=== PATIENT | male | born 1975 | race Caucasian/White ===

== ENCOUNTER 2017-02-22 21:01 | Inpatient (IN) | payer MEDICAID ==
[~2017-02-22] VITALS: Ht 177.8 cm; Wt 81.6 kg
[2017-02-22 21:04] VITALS: BP 125/90
--- NOTE | 2017-02-22 21:10 | NUR ---
PATIENT IS 41/M PRESENTS TO ED WITH ABD PAIN, VOMITING STARTED AT 1400 HOURS TODAY. PT STATES SURGERY HX OF ABD SURGERY X 25 YEARS AGO . DENIES N/D; SKIN IS PINK/WARM/DRY; AAOX4 WITH EVEN AND STEADY GAIT; LUNGS CLEAR BL; HR EVEN AND REGULAR; PT DENIES ANY FEVER, CP, SOB, OR COUGH AT THIS TIME; PATIENT STATES PAIN OF 9/10 AT THIS TIME; VSS; PATIENT POSITIONED FOR COMFORT; HOB ELEVATED; BEDRAILS UP X2; BED DOWN. ER MD MADE AWARE OF PT STATUS.
--- NOTE | 2017-02-22 21:20 | NUR ---
Patient being evaluated by physician at bedside.
[2017-02-22] MEDS ORDERED: KETOROLAC 30 MG/ML VIAL IVP ONE (21:30)
[2017-02-22] MEDS ORDERED: NACL 0.9% 1,000 ML IV ONE (21:30)
[2017-02-22] MEDS ORDERED: ONDANSETRON 4 MG/2 ML VIAL IVP ONE (21:30)
[2017-02-22 21:44] LABS: HEMATOCRIT 47.2 % (36-52); HEMOGLOBIN 15.5 g/dL (12.0-18.0); MEAN CORPUSCULAR HEMOGLOBIN 30 pg (27-31); MEAN CORPUSCULAR HGB CONC 33 g/dL (33-37); MEAN CORPUSCULAR VOLUME 92 fL (80-94); PLATELET COUNT (AUTO) 384 K/uL (140-450); RED BLOOD CELL COUNT(AUTO) 5.13 MIL/uL (4.20-6.10); RED CELL DISTRIBUTION WIDTH 12.9 % (11.6-13.7); WHITE BLOOD COUNT (AUTO) 16.3 K/uL (4.8-10.8)
--- NOTE | 2017-02-22 21:54 | NUR ---
PT TAKEN OFF UNIT TO CT
[2017-02-22 21:57] LABS: ANION GAP 14.1 (8-16); CALCIUM 9.6 mg/dL (8.5-10.1); CARBON DIOXIDE 29.6 mmol/L (21-32); CREATININE 1.4 mg/dL (0.7-1.3); POTASSIUM 3.7 mmol/L (3.5-5.1)
--- NOTE | 2017-02-22 22:00 | NUR ---
PT BACK ON THE UNIT FROM HAVING CT DONE.
[2017-02-22 22:02] LABS: ALBUMIN 4.6 g/dL (3.4-5.0); TOTAL BILIRUBIN 1.2 mg/dL (0.0-1.0); TOTAL PROTEIN, SERUM 8.6 g/dL (6.4-8.2)
[2017-02-22 22:16] LABS: BAND % (MANUAL) 1 % (0-8); EOSINOPHILS % (MANUAL) 5 % (0-4); LYMPHOCYTES % (MANUAL) 27 % (20-46); MONOCYTES % (MANUAL) 2 % (5-12); NEUTROPHILS % (MANUAL) 65 (43-65); PLATELET ESTIMATE ADEQUATE
[2017-02-22 22:21] LABS: APPEARANCE,URINE CLEAR (CLEAR); BILIRUBIN,URINE NEGATIVE (NEGATIVE); BLOOD, URINE TRACE-I (NEGATIVE); COLOR,URINE YELLOW (YELLOW); LEUKOCYTE ESTERASE ,URINE NEGATIVE (NEGATIVE); NITRITE, URINE NEGATIVE (NEGATIVE); PH,URINE 8.5 (5.0-9.0); PROTEIN,URINE TRACE (NEGATIVE); UGLUCOSE NEGATIVE (NEGATIVE); UROBILINOGEN,URINE 0.2 EU/dL (0.2 - 1)
[2017-02-22 22:34] LABS: BACTERIA,URINE None Seen /HPF (None Seen); MUCUS,URINE 3+ /LPF (None Seen); SQUAMOUS EPITHELIAL CELL,UR None Seen /LPF (0-3 (FEW)); URINE AMORPHOUS PHOSPHATES 3+ /HPF (None Seen); WBC,URINE 0-3 /HPF (0-5)
[2017-02-22] MEDS ORDERED: DOCUSATE SODIUM 100 MG GELCAP PO PRN (23:05)
[2017-02-22] MEDS ORDERED: ONDANSETRON 4 MG/2 ML VIAL IM/IVP PRN (23:05)
[2017-02-22] MEDS ORDERED: MORPHINE SULFATE 2 MG/ML SYR IVP PRN (23:05)
[2017-02-22] MEDS ORDERED: ACETAMINOPHEN 325 MG TAB PO PRN (23:05)
[2017-02-22] MEDS ORDERED: HYDROcodone/APAP 7.5/325 MG 1 TAB PO PRN (23:05)
[2017-02-22] MEDS ORDERED: KETOROLAC 30 MG/ML VIAL IVP PRN (23:10)
--- NOTE | 2017-02-22 23:23 | NUR ---
DR RAZO HERE ON UNIT TO SEE PATIENT
--- NOTE | 2017-02-22 23:31 | NUR ---
Patient will be admitted to care of DR MOSELEY. Admited to TELE. Will go to room 111B. Belongings list completed. Report to SHELDON LIMA.
[2017-02-22 23:39] LABS: PARTIAL THROMBOPLASTIN TIME 25.1 secs (22-35.6); PROTHROMBIN TIME 10.1 secs (10.8-13.4)
[2017-02-22 23:55] LABS: AMPHETAMINE, URINE NEG. ng/ml (NEG <=1000); BARBITURATE, URINE NEG. ng/ml (NEG <=200); BENZODIAZEPINE, URINE NEG. ng/mL (NEG <=200); CANNABINOID, URINE NEG. ng/mL (NEG <=50); COCAINE, URINE NEG. ng/mL (NEG <=300); OPIATE, URINE NEG. ng/mL (NEG <=2000); PHENCYCLIDINE SCREEN,URINE NEG. ng/mL (NEG <=25)
[2017-02-23] MEDS: NACL 0.9% 1,000 ML IV SCH ×3 (00:01→12:03)
[2017-02-23 00:04] LABS: CHOL/HDL RATIO 2.7 (1-4.5); FREE T4 (FREE THYROXINE) 0.98 ng/dL (0.76-1.46); MAGNESIUM 2.2 mg/dL (1.8-2.4); PHOSPHORUS 3.6 mg/dL (2.5-4.9); THYROID STIMULATING HORMONE 1.84 uIU/mL (0.34-3.74)
[2017-02-23 00:09] VITALS: BP 110/64
--- NOTE | 2017-02-23 00:10 | NUR ---
RECEIVE PT FROM ER VIA [facility] PT [place] [facility] AAOX4 AMBULATORY ON TELEMETRY, SR HL ON LEFT AC PATENT SKIN IS INTACT NOT PAIN AT THIS ;TIME PAIN MEDIC WAS GIVEN IN ER ,PT IS ORIENTED TO THE FLOOR CALL LIGHT WITHIN REACH INITIAL ASSESSMENT DONE
--- NOTE | 2017-02-23 00:11 | NUR ---
PT REFUSED NG TUBE
--- NOTE | 2017-02-23 00:20 | NUR ---
PT DENIES ANY PAIN NOT ABD DISTENDED NOT VOMITING REMAIN STABLE AT THIS TIME ON TELEMETRY SR
[2017-02-23] MEDS: LEVOFLOXACIN 750 MG/D5W PREMIX 150 ML IV SCH (01:28)
--- NOTE | 2017-02-23 02:06 | NUR ---
PT SLEEPING AT THIS TIME DENIES ANY PAIN IV ON LEFT AC INFUSING WELL ON TELEMETRY SR.
[2017-02-23 04:00] VITALS: BP 111/69
--- NOTE | 2017-02-23 04:00 | NUR ---
PT RESTING ON BED DENIES ANY PAIN OR N/V PERISTALSIS PRESENT, STILL REFUSING NG TUBE INSERTION HE VERBALIZED TO FEEL BETTER ON TELMETRY SR
[2017-02-23] MEDS: metroNIDAZOLE 500 MG/NS PREMIX 100 ML IV SCH ×3 (05:33→21:09)
[2017-02-23 06:06] LABS: BASOPHILS # (AUTO) 0.2 K/uL (0.00-0.22); BASOPHILS % (AUTO) 1.7 % (0.0-2.0); EOSINOPHILS # (AUTO) 0.5 K/uL (0-0.4); EOSINOPHILS % (AUTO) 3.9 % (0.0-4.0); HEMATOCRIT 40.2 % (36-52); HEMOGLOBIN 13.8 g/dL (12.0-18.0); LYMPHOCYTES # (AUTO) 2.1 K/uL (2.0-11.5); LYMPHOCYTES % (AUTO) 16.3 % (20.5-51.1); MEAN CORPUSCULAR HEMOGLOBIN 32 pg (27-31); MEAN CORPUSCULAR HGB CONC 34 g/dL (33-37); MEAN CORPUSCULAR VOLUME 92 fL (80-94); MONOCYTES # (AUTO) 1.1 K/uL (0.8-1.0); MONOCYTES % (AUTO) 8.7 % (1.7-9.3); NEUTROPHILS # (AUTO) 9.2 K/uL (1.8-7.7); NEUTROPHILS % (AUTO) 69.4 % (42.2-75.2); PLATELET COUNT (AUTO) 296 K/uL (140-450); RED BLOOD CELL COUNT(AUTO) 4.36 MIL/uL (4.20-6.10); RED CELL DISTRIBUTION WIDTH 12.6 % (11.6-13.7); WHITE BLOOD COUNT (AUTO) 13.1 K/uL (4.8-10.8)
[2017-02-23 06:23] LABS: ANION GAP 7.7 (8-16); CALCIUM 7.8 mg/dL (8.5-10.1); CARBON DIOXIDE 31.1 mmol/L (21-32); CREATININE 1.1 mg/dL (0.7-1.3); POTASSIUM 3.8 mmol/L (3.5-5.1)
[2017-02-23 06:29] LABS: MAGNESIUM 1.9 mg/dL (1.8-2.4); PHOSPHORUS 3.6 mg/dL (2.5-4.9)
--- NOTE | 2017-02-23 06:36 | NUR ---
PT VERBALIZED NOT PAIN ABD SOFT NOT DISTENDED DENIES ANY N/V PENDING SMALL BOWEL FOLLOW THRU
--- NOTE | 2017-02-23 07:30 | NUR ---
RECEIVED PT IN BED. AWAKE. ALERT ORIENTEDX4. NO SOB NOTED AT THIS TIME. DENIES ANY PAIN OR DISCOMFORT AT THIS TIME. POSITIVE BOWEL SOUNDS NOTED ON FOUR QUADRANTS. PT AMBULATORY. SAFETY PRECAUTION IN PLACE. CALL LIGHT WITHIN REACH. DENIES ANY DISCOMFORT WITH BOWEL OR BLADDER ELIMINATION.
--- NOTE | 2017-02-23 07:45 | NUR ---
DR. RAO CAME TO SEE PT. PT STILL REFUSES TO DO NGT INSERTION. PER DR. RAO HOLD ALL PO MEDS FOR NOW.
[2017-02-23 08:00] VITALS: BP 124/79
--- NOTE | 2017-02-23 08:38 | NUR ---
RADIOLOGY STAFF CAME TO [employer]PERVISOR PT FOR SMFT. PT ON STABLE CONDITION.D DENIES ANY PAIN OR DISCOMFORT AT THIS TIME.
[2017-02-23] MEDS ORDERED: PANTOPRAZOLE 40 MG TABEC PO SCH (09:00)
--- NOTE | 2017-02-23 09:20 | NUR ---
PATIENT HAS BEEN SCREENED AND CATEGORIZED MODERATE NUTRITION RISK. PATIENT WILL BE SEEN WITHIN 3-5 DAYS OF ADMISSION. 02/25/17-02/27/[address]
--- NOTE | 2017-02-23 09:55 | NUR ---
PT CAME BACK FROM RADIOLOGY DEPT ON STABLE CONDITION. PER RADIOLOGY STAFF JASON PT WILL BE PICKED UP AGAIN FOR ANOTHER PROCEDURE BUT CAN HAVE SIPS OF WATER WITH MEDS.
[2017-02-23] MEDS: LACTOBACILLUS RHAMNOSUS GG 1 EACH CAP PO SCH (09:59)
[2017-02-23 12:00] VITALS: BP 141/82
[2017-02-23] MEDS ORDERED: SIMETHICONE 80 MG TAB.CHEW PO PRN (12:45)
[2017-02-23 16:00] VITALS: BP 135/94
--- NOTE | 2017-02-23 19:30 | NUR ---
RECEIVED REPORT, ASSUMED CARE. PT AAOX4.DENIES PAIN, NO S/S OF RESPIRATORY DISTRESS AT THIS TIME. IV ACCESS TO LT AC GAUGE 20. NO S/S OF INFILTRATION AT THIS TIME. ALL NEEDS ANTICIPATED. CALL LIGHT KEPT WITHIN EASY REACH. DISCUSSED PLAN OF CARE. PT VERBALIZED UNDERSTANDING. WILL CONTINUE TO MONITOR.
--- NOTE | 2017-02-23 19:31 | NUR ---
PT KEPT CLEAN, DRY AND COMFORTABLE, NEEDS ATTENDED. ENDORSED TO NEXT SHIFT ON STABLE CONDITION, FOR CONTINUITY OF CARE.
--- NOTE | 2017-02-23 21:30 | NUR ---
PT AWAKE, DENIES PAIN AT THIS TIME. BROTHERS VISITING. INFORMED FAMILY MEMBERS OF VISITING HOURS, THEY VERBALIZED UNDERSTANDING. WILL CONTINUE TO MONITOR.
[2017-02-24] VITALS: BP 103/68
[2017-02-24] MEDS: NACL 0.9% 1,000 ML IV SCH ×2 (00:15→05:51)
[2017-02-24] MEDS: LEVOFLOXACIN 750 MG/D5W PREMIX 150 ML IV SCH (00:18)
--- NOTE | 2017-02-24 00:20 | NUR ---
PT SOUND ASLEEP AT THIS TIME WITH NO S/S OF RESPIRATORY DISTRESS. WILL CONTINUE TO MONITOR.
[2017-02-24] MEDS: metroNIDAZOLE 500 MG/NS PREMIX 100 ML IV SCH (04:48)
[2017-02-24 06:19] LABS: BASOPHILS # (AUTO) 0.2 K/uL (0.00-0.22); BASOPHILS % (AUTO) 2.3 % (0.0-2.0); EOSINOPHILS # (AUTO) 0.7 K/uL (0-0.4); EOSINOPHILS % (AUTO) 7.9 % (0.0-4.0); HEMATOCRIT 39.8 % (36-52); HEMOGLOBIN 13.3 g/dL (12.0-18.0); LYMPHOCYTES # (AUTO) 2.6 K/uL (2.0-11.5); LYMPHOCYTES % (AUTO) 31.2 % (20.5-51.1); MEAN CORPUSCULAR HEMOGLOBIN 31 pg (27-31); MEAN CORPUSCULAR HGB CONC 33 g/dL (33-37); MEAN CORPUSCULAR VOLUME 94 fL (80-94); MONOCYTES # (AUTO) 0.4 K/uL (0.8-1.0); MONOCYTES % (AUTO) 5.3 % (1.7-9.3); NEUTROPHILS # (AUTO) 4.4 K/uL (1.8-7.7); NEUTROPHILS % (AUTO) 53.3 % (42.2-75.2); PLATELET COUNT (AUTO) 280 K/uL (140-450); RED BLOOD CELL COUNT(AUTO) 4.25 MIL/uL (4.20-6.10); RED CELL DISTRIBUTION WIDTH 12.8 % (11.6-13.7); WHITE BLOOD COUNT (AUTO) 8.3 K/uL (4.8-10.8)
[2017-02-24 06:38] LABS: CALCIUM 7.8 mg/dL (8.5-10.1); CARBON DIOXIDE 29.8 mmol/L (21-32); CREATININE 1.3 mg/dL (0.7-1.3); POTASSIUM 3.8 mmol/L (3.5-5.1)
[2017-02-24 06:50] LABS: MAGNESIUM 1.6 mg/dL (1.8-2.4); PHOSPHORUS 3.2 mg/dL (2.5-4.9)
--- NOTE | 2017-02-24 07:24 | NUR ---
PT AWAKE, RESTING IN BED. NO S/S OF RESPIRATORY DISTRESS. NO ACUTE CHANGES NOTED THROUGHOUT THE SHIFT. ENDORSED TO NEXT SHIFT FOR CONTINUITY OF CARE. PT IN STABLE CONDITION.
[2017-02-24] MEDS ORDERED: PANTOPRAZOLE 40 MG TABEC PO SCH (07:25)
--- NOTE | 2017-02-24 07:30 | NUR ---
RECEIVED PT AAOX4. NO SOB NOTED. NO C/O PAIN AT THIS TIME. IV TO LT AC PATENT AND INTACT. CHEST CLEAR, ABDOMEN SOFT, BOWEL SOUNDS PRESENT. NO EDEMA NOTED. INSTRUCTED PT TO CALL FOR ASSISTANCE, CALL LIGHT WITHIN REACH, PT VERBALIZED UNDERSTANDING.
[2017-02-24 08:22] LABS: HEMOGLOBIN A1C 5.1 % (4.8-5.6); T4 (THYROXINE) 6.7 ug/dL (4.5-12.0)
[2017-02-24] MEDS ORDERED: MAGNESIUM OXIDE 400 MG TAB PO SCH (08:30)
[2017-02-24 08:35] VITALS: BP_SYST 100; BP_SYST 121; BP_DIAS 65; BP_DIAS 78
[2017-02-24] MEDS ORDERED: ATOR10TA PO (08:38)
[2017-02-24] MEDS ORDERED: ATORVASTATIN 20 MG TAB PO SCH (09:00)
--- NOTE | 2017-02-24 09:00 | NUR ---
PT CONSUMED 100% OF BREAKFAST. FOOD TOLERATED WELL. NO N&V, NO C/O ABDOMINAL PAIN.
[2017-02-24] MEDS: LACTOBACILLUS RHAMNOSUS GG 1 EACH CAP PO SCH (09:02)
--- NOTE | 2017-02-24 10:30 | NUR ---
DISCHARGE INSTRUCTIONS AND PRESCRIPTIONS GIVEN TO PT WHICH VERBALIZED FULL UNDERSTANDING OF THE INSTRUCTIONS GIVEN AND THE NEED TO FOLLOW UP WITH DR. CALABRESE'[facility]. ARM BANDS AND IV REMOVED, CANNULA TIP INTACT.
[2017-02-24] MEDS ORDERED: METR250T2 PO (10:35)
[2017-02-24] MEDS ORDERED: LEVO750T2 PO (10:35)
--- NOTE | 2017-02-24 10:40 | NUR ---
PT ESCORTED TO THE FRONT LOBBY, AMBULATORY. NO COMPLAINTS MADE. PT IS DISCHARGED HOME IN STABLE CONDITION, BEING PICKED UP BY HIS FRIEND.
== END 2017-02-24 10:40 | disposition home or self-care (01) | DRG 248 ==
LOC: MED 21:01 → MTU 23:10
PROVIDERS: ADMIT Family Medicine; ATTEND Family Medicine
DX: A04.9 Bacterial intestinal infection, unspecified (principal); N17.0 Acute kidney failure with tubular necrosis; K56.60 Unspecified intestinal obstruction; E83.42 Hypomagnesemia; K57.90 Diverticulosis of intestine, part unspecified, without perforation or abscess without bleeding; J45.909 Unspecified asthma, uncomplicated; E78.5 Hyperlipidemia, unspecified; Z60.2 Problems related to living alone; D72.829 Elevated white blood cell count, unspecified; Z53.29 Procedure and treatment not carried out because of patient's decision for other reasons; E80.6 Other disorders of bilirubin metabolism; Z90.49 Acquired absence of other specified parts of digestive tract
CPT/HCPCS: 36415; 71010; 74250; 80048; 80053; 80305; 81001; 82150; 82247; 83036; 83690; 83735; 83880; 84100; 84436; 84439; 84443; 84479; 85025; 85610; 85730; 87081; 93005; 96361; 96374; 96375; 99285; J1885; J1956; J2405; J3490; J7030; Q0092